=== PATIENT | female | born 2000 | race African-American/Black ===

== ENCOUNTER 2018-06-25 10:56 | Emergency (ER) | payer SELFPAY ==
[~2018-06-25] VITALS: Ht 152.4 cm; Wt 57.8 kg
[2018-06-25 11:06] VITALS: BP 108/71
[2018-06-25 12:17] LABS: RAPID INFLUENZA A Negative (Negative); RAPID INFLUENZA B Negative (Negative)
[2018-06-25] MEDS ORDERED: DEXAMETHASONE 4 MG TABLET ONE (12:25)
[2018-06-25] MEDS ORDERED: DEXAMETHASONE 4 MG TABLET PO ONE (12:30)
== END 2018-06-25 12:31 | disposition home or self-care (01) ==
LOC: ED 12:30
DX: B34.9 Viral infection, unspecified (principal)
CPT/HCPCS: 87081; 87400; 87880; 99283

== ENCOUNTER 2018-09-29 10:47 | Emergency (ER) | payer SELFPAY ==
[~2018-09-29] VITALS: Ht 152.4 cm; Wt 57.0 kg
--- NOTE | 2018-09-29 11:28 | NUR ---
FIRST CONTACT WITH PT. Pt presents to ED with c/o vaginal bleeding after having sex, and "not being able to feel my IUD strings." Pt denies sob, n/v/d, cp, syncope, or trauama. Pt denies vaginal discharge. Pt ambulates with steady gait and balance to bathroom to provide UA. NADN. No obvious defecits observed.
--- NOTE | 2018-09-29 11:35 | NUR ---
Pt ambulated back to room from bathroom with UA cup. UA sent to lab.
[2018-09-29 11:42] LABS: HCG UR SG 1.024 (1.003-1.030)
--- NOTE | 2018-09-29 12:50 | NUR ---
lunch rn: md at [facility] for pelvic exam
--- NOTE | 2018-09-29 13:31 | NUR ---
Patient given discharge instructions and they have confirmed that they understand the instructions. Patient ambulatory with steady gait. Pt left with prescription, discharge paperwork, and all personal belongings.
[2018-09-29 13:32] VITALS: BP 127/76
== END 2018-09-29 13:34 | disposition home or self-care (01) ==
LOC: ED 13:19
DX: N80.8 Other endometriosis (principal); T83.32XA Displacement of intrauterine contraceptive device, initial encounter; F17.200 Nicotine dependence, unspecified, uncomplicated
CPT/HCPCS: 76830; 81025; 99284